=== PATIENT | male | born 1970 | race Caucasian/White ===

== ENCOUNTER 2025-07-31 13:46 | Outpatient (CLI) | payer OTHER, SELFPAY ==
--- NOTE | 2025-07-31 14:11 | ECHO_ITS ---
Patient Info Name: Walker Badillo Age: 54 years : 1970 Gender: Male Ht: 70 in Wt: 195 lbs BSA: 2.11 m2 HR: 80 bpm BP: 175 / 103 mmHg Technical Quality: Good Exam Date: 07/31/2025 2:15 PM Patient Status: O Admit Date: 07/31/2025 Exam Type: CA echo doppler color flow Complete two-dimensional, color flow and Doppler transthoracic echocardiogram is performed. [employer]: Faby Padilla Attending Provider: Jung Morales MD Summary 1. Complete two-dimensional, color flow and Doppler transthoracic echocardiogram is performed. 2. Left ventricular chamber dimension is mildly enlarged. 3. Left ventricular systolic function is preserved, estimated at 50-55. 4. There is moderate concentric increased left ventricular wall thickness. 5. The left ventricular diastolic function is grade I diastolic dysfunction. 6. E/e' 15 is elevated. 7. Left atrial chamber dimension is mildly enlarged. 8. There is mild mitral valve regurgitation. 9. There is trace tricuspid valve regurgitation. 10. No pulmonary hypertension, estimated pulmonary arterial systolic pressure is 27 mmHg. 11. The aortic root size at the sinus of Valsalva is borderline dilated at 4.1 cm. Left Ventricle E/e' 15 is elevated. Left ventricular chamber dimension is mildly enlarged. Left ventricular systolic function is preserved, estimated at 50-55. There is moderate concentric increased left ventricular wall thickness. The left ventricular diastolic function is grade I diastolic dysfunction. Right Ventricle Right ventricular chamber dimension is normal. Right ventricular systolic function is normal and with normal TAPSE 2.9 cm. Left Atria Left atrial chamber dimension is mildly enlarged. Right Atria Right atrial chamber dimension is normal. Aortic Valve The aortic valve is trileaflet. There is no aortic valve stenosis. There is no aortic valve regurgitation. Pulmonic Valve There is no pulmonic regurgitation. Mitral Valve There is no mitral valve stenosis. There is mild mitral valve regurgitation. Tricuspid Valve There is trace tricuspid valve regurgitation. No pulmonary hypertension, estimated pulmonary arterial systolic pressure is 27 mmHg. Pericardium/Pleural There is no pericardial effusion. Inferior Vena Cava Normal inferior vena cava with >50% collapse upon inspiration consistent with normal right atrial pressure, 5 mmHg. Aorta The aortic root size at the sinus of Valsalva is borderline dilated at 4.1 cm. Left Ventricular Outflow Tract Name Value Normal LVOT 2D LVOT Diameter 2.0 cm LVOT Doppler LVOT Peak Velocity 97 cm/s LVOT Peak Gradient 4 mmHg LVOT Mean Gradient 2 mmHg LVOT VTI 18 cm LVOT VTI/AV VTI Ratio 1.0 LVOT Stroke Volume 55 ml LVOT CO 4.4 l/min LVOT CI 2.1 l/min/m2 Pulmonic Valve Name Value Normal RVOT Doppler RVOT Peak Velocity 64 cm/s RVOT Peak Gradient 2 mmHg PV Doppler PV Peak Velocity 118 cm/s PV Peak Gradient 6 mmHg Mitral Valve Name Value Normal MV Diastolic Function MV E Peak Velocity 79 cm/s MV A Peak Velocity 107 cm/s MV E/A 0.7 MV Decel Time (PW) 106 ms Tricuspid Valve Name Value Normal TV Regurgitation Doppler TR Peak Velocity 234 cm/s TR Peak Gradient 22 mmHg Estimated PAP/RSVP RA Pressure 5 mmHg <=5 PA Systolic Pressure 27 mmHg <36 RV Systolic Pressure 27 mmHg <36 TV Annular TDI TV Lateral Kendal s' Velocity 19.4 cm/s >=9.5 Aorta Name Value Normal Ascending Aorta Ao Root Diameter (MM) 4.1 cm Ao Root Diam Index (MM) 1.9 cm/m2 Aortic Valve Name Value Normal AV Doppler AV Peak Velocity 111 cm/s AV Peak Gradient 5 mmHg AV Mean Gradient 3 mmHg AV VTI 19 cm AV Area (Cont Eq VTI) 3.0 cm2 >=3.0 AV Area (Cont Eq Jalen) 2.7 cm2 AV DI (Jalen) 0.88 AV Regurgitation 2D LVOT Area 3.0 cm2 Ventricles Name Value Normal LV Dimensions 2D/MM IVS Diastolic Thickness (2D) 1.5 cm 0.6-1.0 IVS Diastole Thickness (MM) 1.7 cm 0.6-1.0 LVID Diastole (2D) 4.5 cm 4.2-5.8 LVID Diastole (MM) 6.2 cm 4.2-5.8 LVIW Diastolic Thickness (2D) 1.6 cm 0.6-1.0 LVIW Diastolic Thickness (MM) 1.4 cm 0.6-1.0 LVID Systole (2D) 3.5 cm 2.5-4.0 LVID Systole (MM) 4.2 cm 2.5-4.0 LVOT Diameter 2.0 cm LV Mass (2D Cubed) 294.64 g 88.00-224.00 LV Mass Index (2D Cubed) 140 g/m2 49-115 Relative Wall Thickness (2D) 0.70 <=0.42 LV Mass (MM Cubed) 462.97 g 88.00-224.00 LV Mass Index (MM Cubed) 220 g/m2 49-115 Relative Wall Thickness (MM) 0.46 LV Fractional Shortening/Ejection Fraction 2D/MM LV Fractional Shortening (2D) 22 % 25-43 LV Fractional Shortening (MM) 32 % 25-43 LV EF (MM Teichholz) 59 % LV EF (2D Teichholz) 45 % LV Diastolic Volume (4C MOD) 131 ml LV EF (4C MOD) 50 % LV Diastolic Volume (2C MOD) 95 ml LV EF (2C MOD) 33 % LV Diastolic Volume (BP MOD) 112 ml 62-150 LV Diastolic Volume Index (BP MOD) 53 ml/m2 34-74 LV Systolic Volume (BP MOD) 66 ml 21-61 LV Systolic Volume Index (BP MOD) 31 ml/m2 11-31 LV EF (BP MOD) 41 % 52-72 LV Diastolic Length (4C) 8.9 cm LV Systolic Length (4C) 7.2 cm LV Stroke Volume (4C MOD) 65 ml Atria Name Value Normal LA Dimensions LA Dimension (MM) 4.4 cm 3.0-4.0 LA Volume (4C A-L) 46 ml LA Volume (BP A-L) 59 ml RA Dimensions RA Systolic [employer] Length (4C) 4.7 cm 2.1-2.7 RA Area (4C) 11.5 cm2 <=18.0 Report Signatures
== END 2025-07-31 13:47 | disposition home or self-care (01) ==
PROVIDERS: PCP Emergency Medicine; Visit Provider Emergency Medicine
DX: R93.1 Abnormal findings on diagnostic imaging of heart and coronary circulation (principal); I63.9 Cerebral infarction, unspecified
CPT/HCPCS: 93306

== ENCOUNTER 2025-08-15 08:34 | Outpatient (CLI) | payer OTHER, SELFPAY ==
--- OUTSIDE RECORDS SUMMARY | 2025-08-15 08:37 | XMS_ITS | Clinical Summary ---
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 06/06/2022 Active metFORMIN (GLUCOPHAGE) 1000 MG tablet Take 1 tablet (1,000 mg total) by mouth 2 (two) times daily. 05/25/2022 Active amLODIPine (NORVASC) 10 MG tablet Take 1 tablet (10 mg total) by mouth daily. 11/24/2024 Active lisinopril (PRINIVIL) 40 MG tablet Take 1 tablet (40 mg total) by mouth daily. 30 tablet 02/09/2025 Active aspirin 81 MG chewable tablet Chew 1 tablet (81 mg total) by mouth daily. 30 tablet 30 02/09/2025 Active atorvastatin (LIPITOR) 80 MG tablet Take 1 tablet (80 mg total) by mouth nightly at bedtime. 30 tablet 02/08/2025 Active clopidogrel (PLAVIX) 75 MG tablet Take 1 tablet (75 mg total) by mouth daily. 30 tablet 02/09/2025 Active famotidine (PEPCID) 20 MG tablet Take 1 tablet (20 mg total) by mouth nightly as needed (heartburn). 60 tablet 02/08/2025 Active hydrALAZINE (APRESOLINE) 25 MG tablet Take 1 tablet (25 mg total) by mouth 2 (two) times a day. 60 tablet 02/08/2025 Active Active Problems Problem Noted Date Diagnosed Date CVA (cerebral vascular accident) 02/05/2025 Social History Tobacco Use Types Packs/Day Years Used Date Smoking Tobacco: Never Smokeless Tobacco: Never Tobacco Cessation:Counseling Given: No Alcohol Use Standard Drinks/Week Comments Not Currently 0 (1 standard drink = 0.6 oz pur e alcohol) [facility] Utilities Answer Date Recorded In the past 12 months has e electric, gas, oil, or water company threatened to shut off services in your home? No 02/05/2025 Humiliation, Afraid, Rape, and Kick questionnair e Answer Date Recorded Within the last year, have y ou been afraid of your partner or ex-partner? No 02/05/2025 Within the last year, have y ou been humiliated or emotionally abused in other ways by your partner or ex-partner? No Within the last year, have y ou been kicked, hit, slapped, or otherwise physically hurt by your partner or ex-partner? No 02/05/2025 Within the last year, have y ou been raped or forced to have any kind of sexual activity by your partner or ex-partner? No 02/05/2025 Overall Financial Resource Strain (CARDIA) Answe r Date Recorded How hard is it for you to pa y for the very basics like food, housing, medical care, and heating? Not very hard 02/05/2025 Hunger Vital Sign Answer Date Recorded Within the past 12 months, y ou worried that your food would run out before you got the money to buy more. Never true 02/06/20 25 Within the past 12 months, t he food you bought just didn't last and you didn't have money to get more. Never true 02/05/2025 PRAPARE - Transportation Answer Date Re corded In the past 12 months, has l ack of transportation kept you from medical appointments or from getting medications? No 01/19 In the past 12 months, has l ack of transportation kept you from meetings, work, or from getting things needed for daily living? No 02/05/2025 Housing Stability Vital Sign Answer Burton e Recorded In the last 12 months, was t here a time when you were not able to pay the mortgage or rent on time? No 02/05/2025 In the past 12 months, how m any times have you moved where you were living? 0 02/05/2025 At any time in the past 12 m [facility], were you homeless or living in a fdc (including now)? No 02/05/2025 Sex and Gender Information Value Date Recorded Sex Assigned at Male 02/05/2025 4:55 PM CDT Legal Sex Male 4:32 PM CDT Gender Identity Male 02/05/2025 4:55 PM CDT Sexual Orientation Straight 02/05/2025 4: 55 PM CDT Last Filed Vital Signs Vital Sign Reading Time Taken Comments Blood Pressure 148/88 02/08/2025 10:00 AM CDT Pulse 93 02/08/2025 10:00 AM CDT Temperature 37.1 C (98.8 F) 02/08/2025 8:00 AM CDT Respiratory Rate 21 02/08/2025 10:00 AM CDT Oxygen Saturation 94% 02/08/2025 10:00 AM CDT Inhaled Oxygen Concentration - - Weight 87 kg (191 lb 12.8 oz) 02/07/2025 4:00 AM CDT Height 177.8 cm (5' 10) 02/05/2025 4:39 PM CDT Body Mass Index 27.52 02/05/2025 4:39 PM CDT Plan of Treatment Health Maintenance Due Date Last Done Comments Colorectal Cancer Screening Colonoscopy (10 Years) 1970 Annual Physical 12/18/1974 Hepatitis C 12/18/1989 DTaP, Tdap and Td Vaccines ( 1 - Tdap) 12/18/1990 Hepatitis B Vaccines (1 of 3 - 19+ 3-dose series) 12/18/1990 Pneumococcal Vaccine: 50+ Years (1 of 1 - PCV) 12/18/2021 Zoster Vaccines (1 of 2) 12/18/2021 COVID-19 Vaccine ( - 2024-2 6 season) 2025 Influenza Adult (#1) 2025 06/02/2020, 06/05/2019, 07/04/2018 Hepatitis A Vaccines Aged Out No long er eligible based on patient's age to complete this topic Meningococcal B Vaccine Aged Out No l onger eligible based on patient's age to complete this topic Meningococcal Vaccine Aged Out No amparo marielos eligible based on patient's age to complete this topic RSV Immunizations Under 20 Months Aged Out No longer eligible b ased on patient's age to complete this topic Goals Goal Patient Goal Type Associated Problems Recent Progress Patient-Stated? 

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
[2025-08-19 12:33] VITALS: BMI 28.7
== END 2025-08-16 06:54 | disposition home or self-care (01) ==
LOC: ANHCSM 08:36
PROVIDERS: PCP Emergency Medicine; Visit Provider Physician Assistant
DX: G47.10 Hypersomnia, unspecified (principal); G47.33 Obstructive sleep apnea (adult) (pediatric)
CPT/HCPCS: 95811